=== PATIENT | female | born 1995 | race Caucasian/White ===

== ENCOUNTER 2018-09-27 12:23 | Inpatient (IN) | payer MEDICAID, OTHER ==
[~2018-09-27] VITALS: Ht 147.3 cm; Wt 66.7 kg
[2018-09-27 12:32] VITALS: BP 105/74
--- NOTE | 2018-09-27 12:39 | NUR ---
PT SENT TO LOBBY TO WAIT FOR AVAILABLE BED. UA SPECIMEN CUP PROVIDED TO PATIENT. PT PLACED INTO A W/C FOR SAFETY AND COMFORT. ACCOMPANIED BY MOTHER.
--- NOTE | 2018-09-27 12:50 | NUR ---
Patient transferred to bed 5 via wheelchair by tech. RN evaluating patient at bedside.
--- NOTE | 2018-09-27 13:10 | NUR ---
C/O SHARP EPIGASTRIC PAIN 10/10 THAT RADIATES TO LLQ & LRQ, NAUSEA, VOMITING, DIARRHEA X 1 WEEK. DENIES FEVER. BOWEL SOUNDS PRESENT X4, ABD SOFT/FLAT/ TENDER. SKIN IS PINK/WARM/DRY; AAOX4 WITH EVEN AND STEADY GAIT; LUNGS CLEAR BL; HR EVEN AND REGULAR; VSS; PATIENT POSITIONED FOR COMFORT; HOB ELEVATED; BEDRAILS UP X1; BED DOWN. ER MD MADE AWARE OF PT STATUS.
[2018-09-27 13:17] LABS: BASOPHILS # (AUTO) 0.1 K/uL (0.00-0.22); BASOPHILS % (AUTO) 0.5 % (0.0-2.0); EOSINOPHILS % (AUTO) 0.1 % (0.0-4.0); HEMATOCRIT 47.1 % (36-48); HEMOGLOBIN 15.7 g/dL (12.0-16.0); LYMPHOCYTES # (AUTO) 3.5 K/uL (2.5-16.5); LYMPHOCYTES % (AUTO) 13.5 % (20.5-51.1); MEAN CORPUSCULAR HEMOGLOBIN 30 pg (27-31); MEAN CORPUSCULAR HGB CONC 33 g/dL (33-37); MEAN CORPUSCULAR VOLUME 88.8 fL (80-94); MONOCYTES # (AUTO) 0.9 K/uL (0.8-1.0); MONOCYTES % (AUTO) 3.4 % (1.7-9.3); NEUTROPHILS # (AUTO) 21.5 K/uL (1.8-7.7); NEUTROPHILS % (AUTO) 82.5 % (42.2-75.2); PLATELET COUNT (AUTO) 313 K/uL (140-450); RED BLOOD CELL COUNT(AUTO) 5.31 MIL/uL (4.20-5.40); RED CELL DISTRIBUTION WIDTH 14.5 % (11.6-13.7)
[2018-09-27 13:25] LABS: ANION GAP 17.3 (8-16); CARBON DIOXIDE 24.7 mmol/L (21-32); CREATININE 0.9 mg/dL (0.6-1.3)
[2018-09-27] MEDS ORDERED: NACL 0.9% 1,000 ML IV SCH ×2 (13:28→16:25)
[2018-09-27] MEDS ORDERED: GLYCOPYRROLATE 0.2 MG/ML VIAL IV ONE (13:30)
[2018-09-27] MEDS ORDERED: KETOROLAC 30 MG/ML VIAL IVP ONE (13:30)
[2018-09-27 13:31] LABS: ALBUMIN 4.1 g/dL (3.4-5.0); TOTAL BILIRUBIN 0.9 mg/dL (0.0-1.0)
[2018-09-27] MEDS ORDERED: metroNIDAZOLE 500 MG/NS PREMIX 100 ML IV ONE (14:40)
[2018-09-27] MEDS ORDERED: LEVOFLOXACIN 500 MG/D5W PREMIX 100 ML IV ONE (14:40)
[2018-09-27] MEDS ORDERED: PROMETHAZINE 25 MG/ML VIAL IM ONE (15:00)
[2018-09-27] MEDS ORDERED: METOCLOPRAMIDE 10 MG/2 ML INJ VIAL IVP ONE (15:00)
--- NOTE | 2018-09-27 15:38 | NUR ---
PT LEAVING TO CT
[2018-09-27 15:43] LABS: APPEARANCE,URINE HAZY (CLEAR); BILIRUBIN,URINE 2+ (NEGATIVE); BLOOD, URINE NEGATIVE (NEGATIVE); COLOR,URINE ORANGE (YELLOW); LEUKOCYTE ESTERASE ,URINE TRACE (NEGATIVE); NITRITE, URINE NEGATIVE (NEGATIVE); UGLUCOSE NEGATIVE (NEGATIVE)
[2018-09-27 15:46] LABS: BARBITURATE, URINE NEG. ng/ml (NEG <=200); BENZODIAZEPINE, URINE NEG. ng/mL (NEG <=200); CANNABINOID, URINE NEG. ng/mL (NEG <=50); COCAINE, URINE NEG. ng/mL (NEG <=300); OPIATE, URINE NEG. ng/mL (NEG <=2000); PHENCYCLIDINE SCREEN,URINE NEG. ng/mL (NEG <=25)
--- NOTE | 2018-09-27 15:52 | NUR ---
PT RETURNED FROM CT
[2018-09-27 15:53] LABS: RBC,URINE 0-5 /HPF (0-5)
[2018-09-27] MEDS ORDERED: DOCUSATE SODIUM 100 MG GELCAP PO PRN (16:25)
[2018-09-27] MEDS ORDERED: ACETAMINOPHEN 325 MG TAB PO PRN (16:25)
[2018-09-27 16:51] LABS: PROTHROMBIN TIME 9.9 secs (10.8-13.4)
[2018-09-27] MEDS ORDERED: NACL 0.9% 2,000 ML IV SCH (17:03)
[2018-09-27 17:04] LABS: CHOL/HDL RATIO 5.1 (1-4.5); FREE T4 (FREE THYROXINE) 1.08 ng/dL (0.76-1.46); PHOSPHORUS 4.5 mg/dL (2.5-4.9); THYROID STIMULATING HORMONE 0.76 uIU/mL (0.34-3.74)
[2018-09-27] MEDS ORDERED: PIPERACILLIN/TAZOBACTAM 3.375 GM in DEXT 5% MINI-BAG PLUS 50 ML IV ONE (17:05)
[2018-09-27] MEDS ORDERED: PIPERACILLIN/TAZOBACTAM 3.375 GM VIAL IV ONE ×2 (17:22→23:57)
--- NOTE | 2018-09-27 17:32 | NUR ---
Patient will be admitted to care of DR. MEDEIROS. Admited to TELE. Will go to room 119B. Belongings list completed. Report to ABDIRIZAK LEDEZMA.
--- NOTE | 2018-09-27 17:42 | NUR ---
PT ARRIVED ON UNIT. RECEIVED HAND OFF REPORT FROM ER NURSE ADRIAN. PT IS STABLE AND RESTING IN BED. IV IS INFUSING. IV IS PATENT WITH NO SIGNS OF INFILTRATION. PT IS STABLE AND APPEARS IN NO APPARENT DISTRESS. WILL CONTINUE TO MONITOR.
--- NOTE | 2018-09-27 17:55 | NUR ---
SPOKE TO CHARGE NURSE RAFIQ AND SHE AGREED TO HAND 2L NS BOLUS THAT WAS NOT HUNG IN ER PRIOR TO TRANSFER. DR. VIZCAINO ORDERED A FEW MINUTES BEFORE TRANSFER. DR. VIZCAINO AWARE.
--- NOTE | 2018-09-27 19:14 | NUR ---
ENDORSED PT TO REMOTE ENCODING OPERATIONS SUPERVISOR NURSE. INFORMED PT OF CRITICAL LAB VALUES. LACTIC ACID 2.3 RECEIVED AT 1808 DID NOT INFORM TOLD NIGHTSHIFT TO. IV IS INFUSING 2ND PART OF 2L NS BOLUS. IV IS PATENT AND NO SIGNS OF INFILTRATION. PT IS STABLE AND SHOWS NO SIGNS OF DISTRESS. ALL SAFETY MEASURES ARE IN PLACE
--- NOTE | 2018-09-27 19:15 | NUR ---
RECEIVED BEDSIDE REPORT FORM DAY SHIFT RN, PATIENT RESTING IN BED, NO COMPLAINTS OF PAIN AT THIS TIME, BED LOW, CALL LIGHT IN REACH. WILL CONTINUE TO MONITOR.
[2018-09-27 19:30] VITALS: BP 103/59
[2018-09-27] MEDS ORDERED: KCL 20 MEQ/WATER INJ PREMIX 200 ML IV SCH (19:30)
[2018-09-27] MEDS ORDERED: KETOROLAC 30 MG/ML VIAL IM SCH (21:00)
[2018-09-27] MEDS: HYDROcodone/APAP 7.5/325 MG 1 TAB PO PRN (21:10)
--- NOTE | 2018-09-27 21:15 | NUR ---
PATIENT COMPLAINS OF ABD PAIN. NORCO GIVEN PER MD ORDERS. NO VOMITING AT THIS TIME. WILL CONTINUE TO MONITOR.
[2018-09-27] MEDS: PIPER/TAZO 3.375GM/D5W PREMIX 50 ML IV SCH (23:56)
[2018-09-28] VITALS: BP 108/63
[2018-09-28] MEDS: LACTATED RINGERS 1,000 ML IV SCH ×4 (00:01→19:20)
[2018-09-28] MEDS: ONDANSETRON 4 MG/2 ML VIAL IM/IVP PRN ×2 (00:13→04:10)
--- NOTE | 2018-09-28 00:15 | NUR ---
ASSISTED PATIENT TO BATHROOM AND BACK TO BED. NO DISTRESS NOTED. WILL CONTINUE TOMONITOR.
[2018-09-28] MEDS: MORPHINE SULFATE 2 MG/ML SYR IVP PRN (01:18)
--- NOTE | 2018-09-28 01:35 | NUR ---
PATIENT COMPLAINS OF ABD PAIN, AND NAUSEA. MORPHINE AND ZOFRAN GIVEN PER MD ORDERS. WILL CONTINUE TO MONITOR.
--- NOTE | 2018-09-28 03:30 | NUR ---
ASSISTED PATIENT IN GOING TO BATHROOM AND BACK TO BED. NO DISTRESS NOTED. WILL CONTINUE TO MONITOR.
[2018-09-28 04:00] VITALS: BP 104/58
[2018-09-28] MEDS: KETOROLAC 30 MG/ML VIAL IVP SCH ×3 (04:10→21:40)
--- NOTE | 2018-09-28 04:20 | NUR ---
PATIENT COMPLAINS OF NAUSEA. ZOFRAN GIVEN AT THIS TIME. NO VOMITING. WILL CONTINUE TO MONITOR.
[2018-09-28] MEDS ORDERED: INFLUENZA VIRUS VACCINE QUAD 0.5 ML SYR IMVAC PRN (05:30)
--- NOTE | 2018-09-28 06:30 | NUR ---
PATIENT LYING DOWN IN BED SLEEPING, AROUSABLE BY VOICE. NO DISTRESS NOTED. DENIES ANY PAIN. WILL CONTINUE TO MONITOR.
--- NOTE | 2018-09-28 06:34 | NUR ---
PATIENT HAS BEEN SCREENED AND CATEGORIZED MODERATE NUTRITION RISK. PATIENT WILL BE SEEN WITHIN 3-5 DAYS OF ADMISSION. 09/30/18-10/02/18 SILVIA RUSH MS, RDN
--- NOTE | 2018-09-28 07:19 | NUR ---
GAVE REPORT TO MORNING NURSE FOR CONTINUITY OF CARE. PATIENT IN STABLE CONDITION.
--- NOTE | 2018-09-28 07:20 | NUR ---
RECEIVED HANDOFF REPORT FROM TOLL PATROLMAN NURSE. PT IS AWAKE IN BED. IVF IS INFUSING AT 150MLS/HR. IV SHOWS NO SIGNS OF INFILTRATION. PT APPEARS STABLE AND IN NO APPARENT DISTRESS. ALL SAFETY MEASURES ARE IN PLACE. WILL CONTINUE TO MONITOR.
--- NOTE | 2018-09-28 07:56 | NUR ---
PT SARAH IS DUE AT 0700. NOT IN [place]. CALLED PHARMACY NOT OPEN YET. WILL WAIT TIL THEY OPEN AT 0800 TO SEE IF THEY WILL BRING IT.
[2018-09-28 07:59] LABS: BASOPHILS # (AUTO) 0.1 K/uL (0.00-0.22); BASOPHILS % (AUTO) 0.3 % (0.0-2.0); HEMATOCRIT 40.4 % (36-48); HEMOGLOBIN 13.4 g/dL (12.0-16.0); LYMPHOCYTES # (AUTO) 1.5 K/uL (2.5-16.5); MEAN CORPUSCULAR HEMOGLOBIN 29 pg (27-31); MEAN CORPUSCULAR HGB CONC 33 g/dL (33-37); MEAN CORPUSCULAR VOLUME 88.6 fL (80-94); MONOCYTES # (AUTO) 0.8 K/uL (0.8-1.0); MONOCYTES % (AUTO) 4.7 % (1.7-9.3); NEUTROPHILS # (AUTO) 14.2 K/uL (1.8-7.7); PLATELET COUNT (AUTO) 224 K/uL (140-450); RED BLOOD CELL COUNT(AUTO) 4.56 MIL/uL (4.20-5.40); RED CELL DISTRIBUTION WIDTH 14.4 % (11.6-13.7); WHITE BLOOD COUNT (AUTO) 16.5 K/uL (4.8-10.8)
[2018-09-28 08:00] VITALS: BP 123/69
[2018-09-28] MEDS: PIPER/TAZO 3.375GM/D5W PREMIX 50 ML IV SCH ×3 (08:00→23:22)
--- NOTE | 2018-09-28 08:00 | NUR ---
MORNING ASSESSMENT PERFORMED ON PT. PT VITALS TAKEN ALL WITHIN NORMAL LIMITS. PT IS AWAKE IN BED, IVF INFUSING AT 150ML/HR IV SITE IS PATENT AND SHOWS NO SIGNS OF INFILTRATION ON INFLAMMATION. PT APPEARS STABLE AND IN NO APPARENT DISTRESS. ALL SAFETY MEASURES ARE IN PLACE AND WILL CONTINUE TO MONITOR.
[2018-09-28 08:25] LABS: LYMPHOCYTES % (AUTO) 8.8 % (20.5-51.1); NEUTROPHILS % (AUTO) 86.2 % (42.2-75.2)
[2018-09-28 08:39] LABS: ANION GAP 12.7 (8-16); CARBON DIOXIDE 25.3 mmol/L (21-32); CREATININE 0.7 mg/dL (0.6-1.3)
[2018-09-28 08:40] LABS: AMYLASE 565 U/L (25-115); LIPASE 3095 U/L (73-393)
[2018-09-28] MEDS: PANTOPRAZOLE 40 MG INJ VIAL IVP SCH ×2 (08:48→21:39)
--- NOTE | 2018-09-28 10:15 | NUR ---
PT AWAKE IN BED. PT STATED SHE HAS ABD PAIN. WILL ADMINISTER PAIN MEDICATIONS PER ORDERS. IVF INFUSING AT 150ML/HR. ALL SAFETY MEASURES ARE IN PLACE. WILL CONTINUE TO MONITOR.
[2018-09-28 10:23] LABS: ALBUMIN 2.9 g/dL (3.4-5.0); BILIRUBIN,DIRECT 0.2 mg/dL (0.0-0.3); TOTAL BILIRUBIN 0.8 mg/dL (0.0-1.0)
[2018-09-28] MEDS: HYDROcodone/APAP 7.5/325 MG 1 TAB PO PRN ×2 (10:32→18:47)
[2018-09-28 12:00] VITALS: BP 121/70
--- NOTE | 2018-09-28 12:30 | NUR ---
PT IS AWAKE IN BED. IVF IS INFUSING AT 150ML/HR. NO SIGNS OF INFILTRATION OR INFLAMMATION. PT APPEARS STABLE AND IN NO APPARENT DISTRESS, ALL SAFETY MEASURES ARE IN PLACE. WILL CONTINUE TO MONITOR.
--- NOTE | 2018-09-28 14:45 | NUR ---
FREQUENT ROUNDING. PT IS AWAKE IN BED. FAMILY AT BEDSIDE. IVF INFUSING NO SIGNS OF INFILTRATION OR INFLAMMATION. PT APPEARS STABLE AND IN NO APPARENT DISTRESS, ALL SAFETY MEASURES ARE IN PLACE. WILL CONTINUE TO MONITOR.
[2018-09-28 16:00] VITALS: BP 98/59
--- NOTE | 2018-09-28 17:45 | NUR ---
PT COMPLAINED OF SLIGHT HEADACHE. ASKED IF SHE WANTED PAIN MEDICATION OR A HOT COMPRESS FOR HER HEAD. GAVE THE PATIENT A HOT COMPRESS TO PLACE ON HER HEAD, PT IS STABLE AND IN NO APPARENT DISTRESS, IVF IS INFUSING AT 150ML/HR IV SITE SHOWS NO SIGNS OF INFILTRATION OR INFLAMMATION. ALL SAFETY MEASURES ARE IN PLACE. WILL CONTINUE TO MONITOR.
--- NOTE | 2018-09-28 19:20 | NUR ---
ENDORSED PT TO CODING AND REIMBURSEMENT SPECIALIST NURSE PT IS AWAKE IN BED. IVF IS INFUSING WITH NO SIGNS OF INFILTRATION OR INFLAMMATION. PT IS STABLE WITH NO SIGNS OF DISTRESS. ALL SAFETY MEASURES ARE IN PLACE.
--- NOTE | 2018-09-28 19:21 | NUR ---
RECEIVED REPORT FROM AM SHIFT. NO DISTRESS NOTED. PAIN WITHIN TOLERABLE AT THIS TIME. RESPIRATIONS EVEN, UNLABORED, ON ROOM AIR. AAOX4, CALM, COOPERATIVE, SKIN COLOR APPROPRIATE TO ETHNICITY, WARM TO TOUCH. SKIN INTACT. ABDOMEN SOFT. IV SITE INTACT, PATENT, AND INFUSING IVF PER MD ORDERS. REVIEWED PLAN OF CARE WITH PATIENT. PATIENT VERBALIZED UNDERSTANDING. SAFETY MEASURES IN PLACE, CALL LIGHT WITHIN REACH. WILL CONTINUE TO MONITOR.
--- NOTE | 2018-09-28 21:46 | NUR ---
PATIENT LYING DOWN IN BED SLEEPING, AROUSABLE BY VOICE. NO DISTRESS NOTED. DENIES ANY PAIN. SCHEDULED MEDICATIONS DUE GIVEN. WILL CONTINUE TO MONITOR.
--- NOTE | 2018-09-28 23:25 | NUR ---
PATIENT LYING DOWN IN BED, AROUSABLE BY VOICE. NO DISTRESS NOTED. DENIES ANY PAIN. SCHEDULED MEDICATIONS DUE GIVEN. WILL CONTINUE TO MONITOR.
[2018-09-29] VITALS: BP 95/48
--- NOTE | 2018-09-29 01:00 | NUR ---
PATIENT LYING DOWN IN BED SLEEPING, AROUSABLE BY VOICE. NO DISTRESS NOTED. CONDITION UNCHANGED. WILL CONTINUE TO MONITOR.
[2018-09-29] MEDS: LACTATED RINGERS 1,000 ML IV SCH ×4 (01:08→21:03)
--- NOTE | 2018-09-29 03:30 | NUR ---
PATIENT LYING DOWN IN BED SLEEPING, AROUSABLE BY VOICE. NO DISTRESS NOTED. CONDITION UNCHANGED. WILL CONTINUE TO MONITOR.
[2018-09-29] MEDS: PIPER/TAZO 3.375GM/D5W PREMIX 50 ML IV SCH ×3 (06:00→22:17)
--- NOTE | 2018-09-29 06:01 | NUR ---
PATIENT LYING DOWN IN BED SLEEPING, AROUSABLE BY VOICE. NO DISTRESS NOTED. PAIN WITHIN TOLERABLE. SCHEDULED MEDICATIONS DUE GIVEN. WILL CONTINUE TO MONITOR.
[2018-09-29 06:34] LABS: BASOPHILS % (AUTO) 0.1 % (0.0-2.0); HEMATOCRIT 40.4 % (36-48); HEMOGLOBIN 13.4 g/dL (12.0-16.0); LYMPHOCYTES # (AUTO) 1.4 K/uL (2.5-16.5); LYMPHOCYTES % (AUTO) 7.6 % (20.5-51.1); MEAN CORPUSCULAR HEMOGLOBIN 30 pg (27-31); MEAN CORPUSCULAR HGB CONC 33 g/dL (33-37); MEAN CORPUSCULAR VOLUME 89.5 fL (80-94); MONOCYTES # (AUTO) 0.7 K/uL (0.8-1.0); MONOCYTES % (AUTO) 3.8 % (1.7-9.3); NEUTROPHILS # (AUTO) 16.5 K/uL (1.8-7.7); NEUTROPHILS % (AUTO) 88.5 % (42.2-75.2); PLATELET COUNT (AUTO) 187 K/uL (140-450); RED BLOOD CELL COUNT(AUTO) 4.51 MIL/uL (4.20-5.40); RED CELL DISTRIBUTION WIDTH 14.6 % (11.6-13.7); WHITE BLOOD COUNT (AUTO) 18.6 K/uL (4.8-10.8)
[2018-09-29 07:02] LABS: CREATININE 0.7 mg/dL (0.6-1.3)
--- NOTE | 2018-09-29 07:20 | NUR ---
RECEIVED PT REPORT FORM DOCKING SAW OPERATOR NURSE. PT IS AWAKE AND ALERT, ON ROOM AIR, NO S/S OF ACUTE DISTRESS NOTED. SKIN INTACT. PT IS CURRENTLY NPO FOR UPCOMING CHOLECYSTECTOMY TODAY. IV SITE NOTED ON THE LAC 20 G, INFUSING LR 150 ML/HR. PT IS AMBULATORY, AMBULATES WITH A STEADY GAIT. CALL LIGHT IS WITHIN REACH, WILL CONTINUE TO MONITOR.
--- NOTE | 2018-09-29 07:27 | NUR ---
GAVE REPORT TO AM NURSE FOR CONTINUITY OF CARE. PATIENT IN STABLE CONDITION.
[2018-09-29 08:00] VITALS: BP 108/67
[2018-09-29 08:26] LABS: T4 (THYROXINE) 7.2 ug/dL (4.5-12.0)
[2018-09-29] MEDS: PANTOPRAZOLE 40 MG INJ VIAL IVP SCH (09:35)
--- NOTE | 2018-09-29 09:45 | NUR ---
SCHEDULED AM MED ADMINISTERED. LR INFUSING WELL, IV SITE IS PATENT AND INTACT. PT C/O A HEADACHE, PRN TYLENOL ADMINISTERED. WILL REASSESS IN AN HOUR.
--- NOTE | 2018-09-29 11:13 | NUR ---
PT AMBULATING IN THE HALLWAY. GAIT IS STEADY, NO C/O WEAKNESS OR DIZZINESS
--- NOTE | 2018-09-29 11:20 | NUR ---
PT'S FEVER NOTED TO BE 99.7 (ORAL). PT WAS GIVEN TYLENOL EARLIER FOR A HEADACHE. PT STATES THAT SHE FEELS WARM AND STILL HAS A HEADACHE. PT WAS GIVEN AN ICE PACK ON HER FOREHEAD. WILL CONTINUE TO MONITOR PT. DR PATEL IS AWARE.
--- NOTE | 2018-09-29 13:38 | NUR ---
RECHECKED PT'S TEMP, 99.6 AT THIS TIME (ORAL) WILL CONTINUE TO MONITOR.
[2018-09-29 16:00] VITALS: BP 105/70
--- NOTE | 2018-09-29 17:09 | NUR ---
TALKED TO MD REGARDING PT'S SURGERY, MD SAID THAT SURGERY WILL NEED TO BE HELD OFF UNTIL PT'S WBC COUNTS ARE DOWN. PT WAS PLACED ON A FULL LIQUID DIET FOR NOW, AND WILL BE MAINTAINED NPO AFTER MIDNIGHT.
--- NOTE | 2018-09-29 17:43 | NUR ---
PT'S FAMILY VISITING AT BEDSIDE. PT IN NO ACUTE DISTRESS. CALL LIGHT IS WITHIN REACH. WILL CONTINUE TO MONITOR.
--- NOTE | 2018-09-29 18:05 | NUR ---
DR KUMAR IS AWARE OF PT'S LOW O2 SATS (90-91%). DR KUMAR WILL ORDER O2 NASAL CANULA NEEDED TO KEEP O2 SAT ABOVE 92%
--- NOTE | 2018-09-29 19:25 | NUR ---
PT ENDORSED TO KENNEL WORKER IN STABLE CONDITION.
--- NOTE | 2018-09-29 19:30 | NUR ---
RECEIVED BEDSIDE REPORT FROM RN ZORAIDA, PATIENT IN BED, ON 2 L VIA NC, ABLE TO FOLLOW COMMANDS, EXPLAINED PLAN OF CARE, CALL LIGHT WITHIN REACH, WILL CONTINUE TO MONITOR
--- NOTE | 2018-09-29 20:59 | NUR ---
2004 ROOM AIR SATS 83%. PLACED PT ON 3LNC. SATS IMPROVED TO 97%. INCENTIVE SPIROMETER GIVEN TO PATIENT. PT DID 500CC . PT IN PAIN. RN AWARE
[2018-09-29] MEDS: KETOROLAC 30 MG/ML VIAL IVP PRN (21:02)
[2018-09-29] MEDS: ONDANSETRON 4 MG/2 ML VIAL IM/IVP PRN (21:02)
--- NOTE | 2018-09-29 21:02 | NUR ---
PATIENT C/O PAIN AND NAUSEA MEDICATED WITH TORADOL AND ZOFRAN
--- NOTE | 2018-09-29 22:00 | NUR ---
PATIENT RESTING IN BED ON 3 L VIA NC
[2018-09-29] MEDS ORDERED: VANCOMYCIN PER PHARMACY MC PRN (23:40)
[2018-09-30] VITALS: BP 110/75
--- NOTE | 2018-09-30 | NUR ---
V/S TAKEN ALL STABLE
--- NOTE | 2018-09-30 01:56 | NUR ---
SLEEPING IN BED NO SIGNS OF DISTRESS
[2018-09-30] MEDS: LACTATED RINGERS 1,000 ML IV SCH ×2 (03:31→10:07)
--- NOTE | 2018-09-30 03:34 | NUR ---
PATIENT WANTED TORADOL BUT CHANGED MIND PRIOR TO ADMINISTRATION RETURNED TORADOL
[2018-09-30] MEDS: KETOROLAC 30 MG/ML VIAL IVP PRN ×2 (05:18→15:50)
--- NOTE | 2018-09-30 05:29 | NUR ---
PATIENT C/O PAIN GAVE TORADOL
[2018-09-30] MEDS: PIPER/TAZO 3.375GM/D5W PREMIX 50 ML IV SCH ×3 (06:02→21:45)
[2018-09-30 06:45] LABS: BASOPHILS % (AUTO) 0.1 % (0.0-2.0); EOSINOPHILS % (AUTO) 0.1 % (0.0-4.0); HEMATOCRIT 32.5 % (36-48); HEMOGLOBIN 10.7 g/dL (12.0-16.0); LYMPHOCYTES # (AUTO) 1.6 K/uL (2.5-16.5); LYMPHOCYTES % (AUTO) 9.9 % (20.5-51.1); MEAN CORPUSCULAR HEMOGLOBIN 30 pg (27-31); MEAN CORPUSCULAR HGB CONC 33 g/dL (33-37); MEAN CORPUSCULAR VOLUME 89.7 fL (80-94); MONOCYTES # (AUTO) 0.9 K/uL (0.8-1.0); MONOCYTES % (AUTO) 5.4 % (1.7-9.3); NEUTROPHILS # (AUTO) 13.7 K/uL (1.8-7.7); NEUTROPHILS % (AUTO) 84.5 % (42.2-75.2); PLATELET COUNT (AUTO) 165 K/uL (140-450); RED BLOOD CELL COUNT(AUTO) 3.62 MIL/uL (4.20-5.40); RED CELL DISTRIBUTION WIDTH 14.2 % (11.6-13.7); WHITE BLOOD COUNT (AUTO) 16.1 K/uL (4.8-10.8)
[2018-09-30 07:15] LABS: ANION GAP 11.7 (8-16); CARBON DIOXIDE 26.8 mmol/L (21-32); CREATININE 0.6 mg/dL (0.6-1.3); POTASSIUM 3.5 mmol/L (3.5-5.1)
--- NOTE | 2018-09-30 07:23 | NUR ---
WILL ENDORSED PATIENT TO DAY SHIFT NURSE PATIENT STABLE
[2018-09-30 07:35] LABS: MAGNESIUM 1.8 mg/dL (1.8-2.4); PHOSPHORUS 3.3 mg/dL (2.5-4.9)
[2018-09-30 08:00] VITALS: BP 99/62
--- NOTE | 2018-09-30 08:00 | NUR ---
RECEIVED PATIENT IN BED AWAKE A/OX4 NO S/S OF RESP DISTRESS NOTED ABLE TO MAKE NEEDS KNOWN , NO S/S OF RESP DISTRESS NOTED NO COMPLAIN OF PAIN. NO N/V IV SITE INTACT AND PATENT IVF INFUSING WELL. PLAN OF CARE DISCUSSED WITH THE PATIENT VITALS STABLE WILL CONTINUE TO MONITOR.
[2018-09-30] MEDS ORDERED: cefTRIAXone 2,000 MG in DEXTROSE 5% 100 ML IV SCH (09:00)
--- NOTE | 2018-09-30 09:30 | NUR ---
DUE MEDS GIVEN TOLERATED WELL , DENIES ANY PAIN SELF MORNING CARE GIVEN WILL OBSERVE PATIENT
[2018-09-30] MEDS: LACTOBACILLUS RHAMNOSUS GG 1 EACH CAP PO SCH (10:07)
--- NOTE | 2018-09-30 11:00 | NUR ---
SPOKE WITH DR BOLAND UPDATED WITH LIPASE LEVEL NEW ORDER TO KEEP PT NPO.
--- NOTE | 2018-09-30 13:00 | NUR ---
AMBULATE TO HALLWAY , NO PAIN , CALM AND QUITE. STABLE CONDITION
[2018-09-30 15:51] VITALS: BP 119/75
--- NOTE | 2018-09-30 15:57 | NUR ---
COMPLAIN OF ABD PAIN AND FEVER 101.4 TORADOL GIVEN FOR PAIN AND FEVER WILL CONTINUE TO MONITOR.
--- NOTE | 2018-09-30 17:00 | NUR ---
ENDORSE THE CARE TO BRIANNA LEDEZMA
--- NOTE | 2018-09-30 17:01 | NUR ---
GOT BEDSIDE REPORT FROM DARIEN IZAGUIRRE. PATIENT ON MED SURGE AND STANDARD PRECAUTIONS IN PLACE. PATIENT AAOX4. SKIN INTACT, AMBULATORY AND CONTINENT. IV ON L AC 20 G INFUSING LR AT 150. IV ASYMPTOMATIC PATENT AND INTACT. BED IN LOW POSITION, CALL LIGHT WITHIN REACH, SIDE RAILS X 2 UP
--- NOTE | 2018-09-30 18:40 | NUR ---
PATIENT PICKED UP FOR SURGERY LAP JADEN
--- NOTE | 2018-09-30 18:40 | NUR ---
FAMILY AT BEDSIDE, PATIENT WITH NO DISTRESS
[2018-09-30] MEDS ORDERED: BUPIVACAINE-MPF/EPI 0.25% 30 ML VIAL INJ ONE (18:45)
[2018-09-30] MEDS ORDERED: DEXAMETHASONE 4 MG/ML VIAL ONE (18:55)
[2018-09-30] MEDS ORDERED: KETOROLAC 30 MG/ML VIAL ONE (18:55)
[2018-09-30] MEDS ORDERED: GLYCOPYRROLATE 0.2 MG/ML VIAL ONE (18:55)
[2018-09-30] MEDS ORDERED: ROCURONIUM 50 MG/5 ML VIAL IV ONE (18:55)
[2018-09-30] MEDS ORDERED: PROPOFOL 200 MG/20 ML VIAL IV ONE (18:55)
[2018-09-30] MEDS ORDERED: ONDANSETRON 4 MG/2 ML VIAL ONE (18:55)
[2018-09-30] MEDS ORDERED: PHENYLEPHRINE 10 MG/ML VIAL ONE (18:55)
[2018-09-30] MEDS ORDERED: SUCCINYLCHOLINE CHLORIDE 200 MG/10 ML VIAL IVP ONE (18:55)
[2018-09-30] MEDS ORDERED: DESFLURANE 240 ML BTL INH ONE (18:55)
[2018-09-30] MEDS ORDERED: fentaNYL 0.05 MG/ML VIAL ONE (19:11)
[2018-09-30] MEDS ORDERED: HYDROmorphone PFS 2 MG/ML SYR ONE (19:11)
[2018-09-30] MEDS ORDERED: HYDROmorphone 1 MG/ML AMP IVP PRN (19:20)
[2018-09-30] MEDS ORDERED: ONDANSETRON 4 MG/2 ML VIAL IVP PRN (19:20)
--- NOTE | 2018-09-30 19:28 | NUR ---
GAVE BEDSIDE REPORT TO DARIEN CULP. PATIENT ENDORSED IN STABLE CONDITION
--- NOTE | 2018-09-30 19:30 | NUR ---
RECEIVED REPORT FROM DAY SHIFT RN, PATIENT IN OR, WILL ASSESS ONCE BACK ON UNIT.
--- NOTE | 2018-09-30 21:30 | NUR ---
PATIENT ARRIVED FROM OR, NOTED 4 SURGICAL INCISIONS ON ABDOMEN, PATIENT C/O PAIN AND NAUSEA WILL MEDICATE. V/S STABLE WILL CONTINUE TO MONITOR
[2018-09-30] MEDS: ONDANSETRON 4 MG/2 ML VIAL IM/IVP PRN (21:44)
[2018-09-30] MEDS: MORPHINE SULFATE 2 MG/ML SYR IVP PRN (21:44)
--- NOTE | 2018-09-30 21:44 | NUR ---
GAVE MORPHINE FOR PAIN GAVE ZOFRAN FOR NAUSEA STARTED IVF FLUIDS WITH D5/1/2 NS AND SCHEDULED ZOSYN
[2018-09-30] MEDS: DEXT 5% / NACL 0.45% 1,000 ML IV SCH (21:45)
--- NOTE | 2018-09-30 22:00 | NUR ---
PATIENT RESTING IN BED, OFFERED ICE CHIPS, PATIENT TOLERATED WELL
--- NOTE | 2018-09-30 23:00 | NUR ---
SLEEPING IN BED, CALL LIGHT WITHIN REACH, V/S STABLE
[2018-10-01] VITALS: BP 126/80
--- NOTE | 2018-10-01 00:03 | NUR ---
V/S STABLE, PATIENT SLEEPING WILL CONTINUE TO MONITOR
--- NOTE | 2018-10-01 01:56 | NUR ---
SITTER AT BEDSIDE, PATIENT SLEEPING IN BED
--- NOTE | 2018-10-01 04:56 | NUR ---
PATIENT ASKED FOR JELLO, DENIES PAIN, SURGICAL DRESSINGS CLEAN AND INTACT
[2018-10-01] MEDS: DEXT 5% / NACL 0.45% 1,000 ML IV SCH (05:03)
[2018-10-01] MEDS: PIPER/TAZO 3.375GM/D5W PREMIX 50 ML IV SCH ×3 (06:02→23:08)
--- NOTE | 2018-10-01 06:24 | NUR ---
PATIENT RESTING IN BED NO SIGNS OF DISTRESS
--- NOTE | 2018-10-01 07:32 | NUR ---
WILL ENDORSE TO DAY SHIFT NURSE
--- NOTE | 2018-10-01 07:45 | NUR ---
RECEIVED HAND OFF REPORT FROM NURSING PROGRAM DIRECTOR NURSE PT IS AWAKE IN BED. PT APPEARS STABLE AND IN NO APPARENT DISTRESS. WILL CONTINUE TO MONITOR.
[2018-10-01 08:05] VITALS: BP 129/67
[2018-10-01 08:15] LABS: BASOPHILS % (AUTO) 0.1 % (0.0-2.0); HEMATOCRIT 31.3 % (36-48); HEMOGLOBIN 10.3 g/dL (12.0-16.0); LYMPHOCYTES # (AUTO) 0.8 K/uL (2.5-16.5); LYMPHOCYTES % (AUTO) 5.7 % (20.5-51.1); MEAN CORPUSCULAR HEMOGLOBIN 30 pg (27-31); MEAN CORPUSCULAR HGB CONC 33 g/dL (33-37); MEAN CORPUSCULAR VOLUME 90.1 fL (80-94); MONOCYTES # (AUTO) 0.5 K/uL (0.8-1.0); MONOCYTES % (AUTO) 3.4 % (1.7-9.3); NEUTROPHILS # (AUTO) 13.4 K/uL (1.8-7.7); NEUTROPHILS % (AUTO) 90.8 % (42.2-75.2); PLATELET COUNT (AUTO) 195 K/uL (140-450); RED BLOOD CELL COUNT(AUTO) 3.47 MIL/uL (4.20-5.40); RED CELL DISTRIBUTION WIDTH 14.3 % (11.6-13.7); WHITE BLOOD COUNT (AUTO) 14.8 K/uL (4.8-10.8)
--- NOTE | 2018-10-01 08:22 | NUR ---
PT ASKING FOR FOOD. GAVE HER HER CLEAR LIQUID TRAY. DIET ORDERED FOR ADVANCE TOLERATED. INFORMED PT IF SHE IS TOLERATED CLEAR LIQUID DIET WELL. I WILL GIVE HER A FULL LIQUID MEAL LATER ON. PT STATED SHE WAS NOT HAVING ANY PAIN AT THE MOMENT. VITALS ARE WITHIN NORMAL LIMITS.
[2018-10-01] MEDS: LACTOBACILLUS RHAMNOSUS GG 1 EACH CAP PO SCH (08:45)
[2018-10-01 08:46] LABS: ALBUMIN 2.1 g/dL (3.4-5.0); ANION GAP 14.1 (8-16); CARBON DIOXIDE 23.6 mmol/L (21-32); CREATININE 0.6 mg/dL (0.6-1.3); PHOSPHORUS 3.4 mg/dL (2.5-4.9); POTASSIUM 3.7 mmol/L (3.5-5.1); TOTAL BILIRUBIN 0.4 mg/dL (0.0-1.0)
--- NOTE | 2018-10-01 08:51 | NUR ---
PT AMBULATED AROUND THE UNIT ASSISTED BY ME. PT HAD A STEADY GAIT AND TOLERATED WELL. PT IS NOW SITTING IN CHAIR IN ROOM. PT IS STABLE AND IN NO APPARENT DISTRESS. PT HAD NO COMPLAINTS OF PAIN WILL CONTINUE TO MONITOR.
--- NOTE | 2018-10-01 10:00 | NUR ---
PT COMPLAINING OF PAIN. ADMINISTERED MORPHINE ORDERED.
[2018-10-01] MEDS: MORPHINE SULFATE 2 MG/ML SYR IVP PRN (10:15)
--- NOTE | 2018-10-01 10:30 | NUR ---
FREQUENT ROUNDING ON PT. PT IS AWAKE IN BED. PT IS STABLE AND IN NO APPARENT DISTRESS. ALL SAFETY MEASURES ARE IN PLACE. WILL CONTINUE TO MONITOR.
--- NOTE | 2018-10-01 10:42 | NUR ---
AWAKE AND ALERT VERBALLY RESPONSIVE OFF SUPPLEMENTAL OXYGEN 76% ROOM AIR Addendum: 10/01/18 at 1150 by David Guaman RT PLACED ON SUPPLEMENTAL OXYGEN AT 3.5 LPM VIA NC
--- NOTE | 2018-10-01 12:50 | NUR ---
PT COMPLAINING OF PAIN. WILL ADMINISTER NORCO.
[2018-10-01] MEDS: HYDROcodone/APAP 7.5/325 MG 1 TAB PO PRN (13:02)
--- NOTE | 2018-10-01 14:05 | NUR ---
FREQUENT ROUNDING ON PT. PT IS AWAKE IN BED WITH FAMILY MEMBERS AT BEDSIDE. PT STATED PAIN RELIEF FROM NORCO. PT APPEARS STABLE AND IN NO APPARENT DISTRESS. ALL SAFETY MEASURES ARE IN PLACE. WILL CONTINUE TO MONITOR.
[2018-10-01] MEDS ORDERED: KETOROLAC 30 MG/ML VIAL IM SCH (14:15)
[2018-10-01 16:00] VITALS: BP 125/65
--- NOTE | 2018-10-01 16:00 | NUR ---
PT REQUESTING FRUIT FROM FNS. FNS BROUGHT PT AN APPLE PT TOLERATED APPLE WELL. PT STATED THAT SHE DID NOT TOLERATE PUDDING OR ICE CREAM WELL LAST NIGHT AND IS NERVOUS TO EAT MANY FOOD ITEMS. PT IS STABLE AND APPEARS IN NO APPARENT DISTRESS. ALL SAFETY MEASURES ARE IN PLACE AND WILL CONTINUE TO MONITOR.
--- NOTE | 2018-10-01 19:26 | NUR ---
ENDORSED PT TO TRANSMITTER CHIEF NURSE. PT IS STABLE AND IN NO APPARENT DISTRESS.
--- NOTE | 2018-10-01 19:27 | NUR ---
RECEIVED PT FROM ABDIRIZAK LEDEZMA PT IS SINHALA SPEAKER AAOX4 ambulatory, s/p lap sil incisions dry and clean, iv on left arm infusing well denies any pain relatives at bed side. INITIAL ASSESSMENT DONE
[2018-10-01 20:00] VITALS: BP 117/67
--- NOTE | 2018-10-01 22:00 | NUR ---
PT AMBULATES AROUN THE UNIT HOLDING IV POLE NOT DISTRESS NOTED
[2018-10-02] VITALS: BP 103/52
--- NOTE | 2018-10-02 01:30 | NUR ---
PT SLEEPING WELL NOT DISTRESS NOTED
--- NOTE | 2018-10-02 02:00 | NUR ---
PT SLEEPING WELL NOT SIGN OF PAIN NOTED
--- NOTE | 2018-10-02 04:00 | NUR ---
SPONGE BATH GIVEN LINEN CHANGED, PT HAS BEEN VOIDING WELL DENIES ANY PAIN OR DISCOMFORT
[2018-10-02] MEDS: PIPER/TAZO 3.375GM/D5W PREMIX 50 ML IV SCH (06:20)
[2018-10-02 06:23] LABS: ANION GAP 8.3 (8-16); CARBON DIOXIDE 29.9 mmol/L (21-32); CREATININE 0.7 mg/dL (0.6-1.3); POTASSIUM 3.2 mmol/L (3.5-5.1)
--- NOTE | 2018-10-02 06:26 | NUR ---
PT AMBULATORY DENIES ANY PAIN OR DISCOMFORT PT WILL BE ENDORSED TO DAY SHIFT FOR CONTINUITY OF CARE
[2018-10-02 06:29] LABS: MAGNESIUM 2.1 mg/dL (1.8-2.4); PHOSPHORUS 2.8 mg/dL (2.5-4.9)
--- NOTE | 2018-10-02 07:31 | NUR ---
RECEIVED BEDSIDE REPORT FROM HOUSEHOLD APPLIANCE ASSEMBLER NURSE. PT IS AWAKE IN BED. PT APPEARS STABLE AND IN NO APPARENT DISTRESS, ALL SAFETY MEASURES ARE IN PLACE. IVF IS INFUSING AT 10MLS/HR TKO IV SITE SHOWS NO SIGNS OF INFLAMMATION OR INFILTRATION. WILL CONTINUE TO MONITOR.
[2018-10-02 08:00] VITALS: BP 120/76
[2018-10-02] MEDS: LACTOBACILLUS RHAMNOSUS GG 1 EACH CAP PO SCH (08:46)
[2018-10-02] MEDS: HYDROcodone/APAP 7.5/325 MG 1 TAB PO PRN (08:46)
--- NOTE | 2018-10-02 09:00 | NUR ---
FREQUENT ROUNDING PT AWAKE PT APPEARS STABLE AND IN NO APPARENT DISTRESS. ALL SAFETY MEASURES ARE IN PLACE AND WILL CONTINUE TO MONITOR.
[2018-10-02 09:21] LABS: BASOPHILS % (AUTO) 0.1 % (0.0-2.0); EOSINOPHILS % (AUTO) 0.1 % (0.0-4.0); HEMATOCRIT 30.1 % (36-48); HEMOGLOBIN 9.8 g/dL (12.0-16.0); LYMPHOCYTES # (AUTO) 1.9 K/uL (2.5-16.5); LYMPHOCYTES % (AUTO) 17.2 % (20.5-51.1); MEAN CORPUSCULAR HEMOGLOBIN 29 pg (27-31); MEAN CORPUSCULAR HGB CONC 33 g/dL (33-37); MEAN CORPUSCULAR VOLUME 89.7 fL (80-94); MONOCYTES # (AUTO) 0.7 K/uL (0.8-1.0); MONOCYTES % (AUTO) 5.8 % (1.7-9.3); NEUTROPHILS # (AUTO) 8.7 K/uL (1.8-7.7); NEUTROPHILS % (AUTO) 76.8 % (42.2-75.2); PLATELET COUNT (AUTO) 230 K/uL (140-450); RED BLOOD CELL COUNT(AUTO) 3.36 MIL/uL (4.20-5.40); RED CELL DISTRIBUTION WIDTH 14.3 % (11.6-13.7); WHITE BLOOD COUNT (AUTO) 11.3 K/uL (4.8-10.8)
--- NOTE | 2018-10-02 09:50 | NUR ---
RECEIVED DISCHARGE ORDER FOR PATIENT. INFORMED PATIENT OF THE PLAN OF CARE. PT IS AWARE AND HAS ARRANGED FOR HER MOTHER TO PICK HER UP AT 1300. PT IS AWARE OF AFTER CARE AND HER FOLLOW UP APPOINTMENT TO BE SCHEDULED IN 2 WEEKS.
[2018-10-02 10:36] VITALS: BP 120/76
[2018-10-02] MEDS ORDERED: POTASSIUM CHLORIDE 10 MEQ TABER PO SCH (12:00)
--- NOTE | 2018-10-02 12:00 | NUR ---
FREQUENT ROUNDING PT AWAKE IN BED. IVF INFUSING AT 10MLS/HR IV SITE SHOWS NO SIGNS OF INFILTRATION OR INFLAMMATION, PT IS STABLE AND IN NO APPARENT DISTRESS. WILL CONTINUE TO MONITOR.
--- NOTE | 2018-10-02 13:00 | NUR ---
REMOVED PT IV. IV CATH TIP INTACT. REMOVED PT ARMBANDS. CHANGED WOUND DRESSINGS AND TOOK DISCHARGE PHOTOS. CLEANSED THE WOUNDS AND REDRESSED THEM. SHOWED PATIENT PROPER CLEANING TECHNIQUE AND CARE FOR INCISION SITE. PT IS STABLE AND IN NO APPARENT DISTRESS. PT IS DRESSED AND READY FOR HER MOM TO PICK HER UP.
--- NOTE | 2018-10-02 13:40 | NUR ---
PT ESCORTED TO THE FRONT LOBBY VIA WHEELCHAIR PICKED UP BY MOM. PT LEFT WITH ALL PERSONAL BELONGINGS AND PT IS STABLE AND IN NO APPARENT DISTRESS.
== END 2018-10-02 13:45 | disposition home or self-care (01) | DRG 710 ==
LOC: MED 12:23 → MTU 16:25
PROVIDERS: ADMIT General Practice; ATTEND General Practice
PROC: 0FT44ZZ Resection of Gallbladder, Percutaneous Endoscopic Approach (ICD-10-PCS; principal; 2018-09-30 22:50)
DX: A41.9 Sepsis, unspecified organism (principal); N17.0 Acute kidney failure with tubular necrosis; K85.10 Biliary acute pancreatitis without necrosis or infection; R65.20 Severe sepsis without septic shock; K80.00 Calculus of gallbladder with acute cholecystitis without obstruction; N39.0 Urinary tract infection, site not specified; E66.9 Obesity, unspecified; G43.909 Migraine, unspecified, not intractable, without status migrainosus; E86.0 Dehydration; F17.210 Nicotine dependence, cigarettes, uncomplicated; R73.03 Prediabetes; E87.6 Hypokalemia; E78.5 Hyperlipidemia, unspecified; J98.11 Atelectasis; Z68.30 Body mass index [BMI] 30.0-30.9, adult
CPT/HCPCS: 36415; 71045; 76705; 80048; 80053; 80076; 80305; 81001; 82150; 82977; 83036; 83605; 83690; 83735; 83880; 84100; 84436; 84439; 84443; 84479; 84484; 85025; 85610; 85730; 86886; 86900; 86901; 87040; 87081; 87086; 88304; 93005; 96365; 96367; 96372; 96375; 99285; C9113; G0482; J0330; J0696; J1100; J1170; J1885; J1956; J2270; J2370; J2405; J2543; J2550; J2704; J2765; J3010; J3480; J3490; J7030; J7060; J7120; Q0092